=== PATIENT | female | born 1975 | race African-American/Black ===

== ENCOUNTER 2024-02-06 22:50 | Emergency (ER) | payer MEDICAID, OTHER ==
[~2024-02-06] VITALS: Ht 167.6 cm; Wt 74.8 kg
[2024-02-07] MEDS ORDERED: ONDA4TAB5 PO (01:03)
[2024-02-07] MEDS ORDERED: ONDANSETRON 4 MG TAB.RAPDIS ONE (01:08)
[2024-02-07] MEDS ORDERED: IBUPROFEN 400 MG TABLET ONE (01:09)
[2024-02-07] MEDS: ONDANSETRON 4 MG TAB.RAPDIS SL ONE (01:29)
[2024-02-07] MEDS: IBUPROFEN 400 MG TABLET PO ONE (01:29)
[2024-02-07 02:24] VITALS: BP 118/74; TEMP 98.1; O2SAT 98
== END 2024-02-07 02:26 | disposition home or self-care (01) ==
LOC: ER 22:54
DX: S06.0X0A Concussion without loss of consciousness, initial encounter (principal); S16.1XXA Strain of muscle, fascia and tendon at neck level, initial encounter; Z79.899 Other long term (current) drug therapy; V89.2XXA Person injured in unspecified motor-vehicle accident, traffic, initial encounter; Y93.89 Activity, other specified; Y92.89 Other specified places as the place of occurrence of the external cause; Y99.8 Other external cause status
CPT/HCPCS: 99284; 72125; 70450; L0172; Q0162